=== PATIENT | female | born 1940 | race Caucasian/White ===

== ENCOUNTER 2017-02-09 09:06 | Outpatient (RCR) | payer MEDICARE, OTHER ==
[~2017-02-09 09:06] MED LIST: ECOTRIN325 MG PO; FOSAMAX PLUS D1 TAB PO; LIPITOR20 MG PO; MVI; ZOCOR 20MG20 MG
== END 2017-02-09 09:07 ==
LOC: WSPT 09:06
DX: Z01.89 Encounter for other specified special examinations (principal)

== ENCOUNTER → 2017-02-24 | Outpatient (CLI) | payer MEDICARE, OTHER | LOC: MC.RAD 07:20 | DX: Z12.31 Encounter for screening mammogram for malignant neoplasm of breast (principal) ==

== ENCOUNTER 2017-03-01 08:01 | Outpatient (RCR) | payer MEDICARE, OTHER | END 2017-03-01 08:04 | disposition still patient (30) | LOC: WSPT | DX: M25.552 Pain in left hip (principal); G89.29 Other chronic pain | CPT/HCPCS: G8978-GP; G8979-GP; G8980-GP ==

== ENCOUNTER → 2018-03-07 | Outpatient (CLI) | payer MEDICARE, OTHER | LOC: MC.RAD 09:49 | DX: Z12.31 Encounter for screening mammogram for malignant neoplasm of breast (principal); Z53.9 Procedure and treatment not carried out, unspecified reason ==

== ENCOUNTER → 2018-03-08 | Outpatient (CLI) | payer MEDICARE, OTHER | LOC: MC.RAD 07:53 | DX: Z12.31 Encounter for screening mammogram for malignant neoplasm of breast (principal) ==

== ENCOUNTER → 2018-09-19 | Outpatient (CLI) | payer MEDICARE, OTHER | LOC: COL.RAD 07:51 | DX: M47.22 Other spondylosis with radiculopathy, cervical region (principal); M48.061 Spinal stenosis, lumbar region without neurogenic claudication; M25.78 Osteophyte, vertebrae ==

== ENCOUNTER → 2019-03-11 | Outpatient (CLI) | payer MEDICARE, OTHER | LOC: MC.RAD 10:20 | DX: Z12.31 Encounter for screening mammogram for malignant neoplasm of breast (principal) ==

== ENCOUNTER → 2020-03-12 | Outpatient (CLI) | payer MEDICARE, OTHER | LOC: MC.RAD 08:27 | DX: Z12.31 Encounter for screening mammogram for malignant neoplasm of breast (principal) ==

== ENCOUNTER → 2020-11-04 | Outpatient (CLI) | payer MEDICARE, OTHER ==
[~2020-11-04] MED LIST changes: +ASPIRIN E.C. 8181 MG PO; +CALCIUM 600 PLU1 TAB PO; +PROTONIX20 MG PO; +RESTASIS0.05% OU; +VOLTAREN GEL 1%1 TU TP
== END ==
LOC: COL.RAD 12:18
DX: M18.12 Unilateral primary osteoarthritis of first carpometacarpal joint, left hand (principal)
CPT/HCPCS: J3301; Q9967

== ENCOUNTER 2021-02-16 15:38 | Outpatient (CLI) | payer MEDICARE, OTHER ==
[~2021-02-16] VITALS: Ht 149.9 cm; Wt 44.3 kg
[~2021-02-16 15:38] MED LIST changes: -ASPIRIN E.C. 8181 MG PO; -CALCIUM 600 PLU1 TAB PO; -PROTONIX20 MG PO; -RESTASIS0.05% OU; -VOLTAREN GEL 1%1 TU TP
[2021-02-16] MEDS ORDERED: VOLTAREN GEL 1%1 TU TP (15:50)
[2021-02-16] MEDS ORDERED: ASPIRIN E.C. 8181 MG PO (15:52)
[2021-02-16] MEDS ORDERED: PROTONIX20 MG PO (15:53)
[2021-02-16] MEDS ORDERED: RESTASIS0.05% OU (15:56)
[2021-02-16] MEDS ORDERED: CALCIUM 600 PLU1 TAB PO (15:57)
[2021-02-16 16:01] VITALS: BP 154/78; PULSE 69; TEMP 98.2
--- NOTE | 2021-02-16 17:21 | NUR ---
PT REMAINED FOR 1 HOUR POST INJECTION, DID FINE, NO ADVERSE REACTIONS, AMBULATED FROM UNIT BY SELF.
== END 2021-02-16 17:15 | disposition home or self-care (01) ==
LOC: EUO 15:38
DX: M81.0 Age-related osteoporosis without current pathological fracture (principal)
CPT/HCPCS: J0897

== ENCOUNTER → 2021-03-15 | Outpatient (CLI) | payer MEDICARE, OTHER ==
[~2021-03-15] MED LIST changes: +ASPIRIN E.C. 8181 MG PO; +CALCIUM 600 PLU1 TAB PO; +PROTONIX20 MG PO; +RESTASIS0.05% OU; +VOLTAREN GEL 1%1 TU TP
== END ==
LOC: MC.RAD 07:57
DX: Z12.31 Encounter for screening mammogram for malignant neoplasm of breast (principal)

== ENCOUNTER 2021-09-07 08:52 | Outpatient (CLI) | payer MEDICARE, OTHER ==
[~2021-09-07] VITALS: Ht 149.9 cm; Wt 46.4 kg
[2021-09-07 09:16] VITALS: BP 130/72; PULSE 68; TEMP 99
[2021-09-07] MEDS ORDERED: PROLIA60 MG/ML SQ (09:18)
[2021-09-07] MEDS ORDERED: NIZORAL CR 30GM TOP (09:19)
[2021-09-07] MEDS ORDERED: ZOCOR 40MG40 MG (09:21)
== END 2021-09-07 09:49 | disposition home or self-care (01) ==
LOC: EUO 08:52
DX: M81.0 Age-related osteoporosis without current pathological fracture (principal)
CPT/HCPCS: J0897

== ENCOUNTER → 2021-10-26 | Outpatient (CLI) | payer MEDICARE, OTHER ==
[~2021-10-26] MED LIST changes: +NIZORAL CR 30GM TOP; +PROLIA60 MG/ML SQ; +ZOCOR 40MG40 MG
== END ==
LOC: COL.RAD 10-22 14:15
DX: M18.12 Unilateral primary osteoarthritis of first carpometacarpal joint, left hand (principal)
CPT/HCPCS: J3301; Q9967

== ENCOUNTER → 2022-02-16 | Outpatient (CLI) | payer MEDICARE, OTHER | LOC: COL.RAD 07:30 | DX: M51.9 Unspecified thoracic, thoracolumbar and lumbosacral intervertebral disc disorder (principal); M48.02 Spinal stenosis, cervical region; R20.0 Anesthesia of skin | CPT/HCPCS: A9575 ==

== ENCOUNTER → 2022-03-16 | Outpatient (CLI) | payer MEDICARE, OTHER | LOC: MC.RAD 06:54 | DX: Z12.31 Encounter for screening mammogram for malignant neoplasm of breast (principal) ==

== ENCOUNTER 2022-09-09 12:46 | Outpatient (CLI) | payer MEDICARE, OTHER ==
[~2022-09-09] VITALS: Ht 149.9 cm; Wt 47.0 kg
[~2022-09-09 12:46] MED LIST changes: -NIZORAL CR 30GM TOP; +NIZORAL SHAMPO120 M1 TP; -ZOCOR 40MG40 MG; +ZOCOR 40MG40 MG PO
[2022-09-09] MEDS ORDERED: PEPCID 20MG TAB20 MG PO (13:14)
[2022-09-09 13:15] VITALS: BP 137/62; PULSE 71; TEMP 98.1
== END 2022-09-09 15:34 ==
LOC: EUO 12:46
DX: M81.0 Age-related osteoporosis without current pathological fracture (principal)
CPT/HCPCS: J0897

== ENCOUNTER 2023-03-14 12:54 | Outpatient (CLI) | payer MEDICARE, OTHER ==
[~2023-03-14] VITALS: Ht 144.8 cm; Wt 47.3 kg
[~2023-03-14 12:54] MED LIST changes: +MULTI VITAMINS1 TAB PO; +PEPCID 20MG TAB20 MG PO
[2023-03-14 13:10] VITALS: BP 114/56; PULSE 66; TEMP 98.4
--- NOTE | 2023-03-14 13:23 | NUR ---
pt tolerated prolia injection well. vital signs remained within normal limtis. pt ambulated independently to main [facility] following injection and pt was free from acute concerns and complaints at time of discharge.
== END 2023-03-14 13:24 | disposition home or self-care (01) ==
LOC: EUO 12:54
DX: M81.0 Age-related osteoporosis without current pathological fracture (principal)
CPT/HCPCS: J0897

== ENCOUNTER 2024-03-16 11:38 | Observation (INO) | payer MEDICARE, OTHER ==
[~2024-03-16] VITALS: Ht 144.8 cm; Wt 47.2 kg
[~2024-03-16 11:38] MED LIST changes: +ADVIL200 MG PO
[2024-03-16 12:17] LABS: BASO # 0.1 K/mm3 (0.0-0.2); EOS # 0.2 K/mm3 (0.0-0.7); GRAN # 5.9 K/mm3 (1.4-6.5); GRAN % 65.3 % (42.2-75.2); HEMOGLOBIN 14.6 g/dl (12.5-16.0); LYMPH # 2.4 K/mm3 (1.2-3.4); MEAN CELL VOLUME 92 fl (80.0-100.0); MEAN CORPUSCULAR HEMOGLOBIN 32 pg (27-31); MEAN CORPUSCULAR HGB CONC 35 g/dl (33.0-37.0); MEAN PLATELET VOLUME 9.1 fl (7.4-10.4); MONO # 0.5 K/mm3 (0.1-0.6); MONO % 5.4 % (1.7-9.3); PLATELET COUNT 326 K/mm3 (130-400); RED BLOOD COUNT 4.55 M/mm3 (4.10-5.30); REDCELL DISTRIBUTION WIDTH-CV 11.9 % (11.5-14.5)
[2024-03-16 12:24] LABS: ALBUMIN 4.2 g/dL (3.4-4.8); BILIRUBIN,TOTAL 0.4 mg/dL (0.2-1.2); CALCIUM 9.8 mg/dL (8.4-10.2); CREATININE, serum 0.71 mg/dL (0.57-1.11); POTASSIUM 3.8 mEq/L (3.5-4.5); TOTAL PROTEIN 7.8 g/dl (6.2-8.1)
[2024-03-16] MEDS ORDERED: hydrALAZINE 20 MG/ML 1 ML VIAL IV ONE (14:00)
[2024-03-16] MEDS ORDERED: Iohexol 350 - 100 ML VIAL IV ONE (16:00)
[2024-03-16 17:00] VITALS: BP_SYST 164
[2024-03-16] MEDS ORDERED: Acetaminophen 325 MG TAB PO PRN (18:00)
[2024-03-16] MEDS ORDERED: MUCINEX 60600 MG/TA1 PO (18:02)
[2024-03-16] MEDS ORDERED: Ibuprofen 200 MG TAB PO PRN (19:45)
[2024-03-16 20:00] VITALS: BP 164/70; PULSE 92; TEMP 98.3
--- NOTE | 2024-03-16 20:00 | NUR ---
PATIENT IS A&O. NOTED ELEVATED B/P OF 164/69 WITH ALL OTHER VSS ON TELE. PATIENT WAS GIVEN HYDRALAZINE ONCE TODAY WHEN SYSTOLIC WAS OVER 180. PATIENT APPEARS TO BE ADMITTED FOR SYMPTOMS OF HTN. SHE REPORTS DIZZINESS WITH STANDING & BURCH BUT DENIES COMPLAINTS NOW. PATIENT REQUESTING TYLENOL AT BEDTIME FOR CHRONIC NECK PAIN, GIVEN WITH HS MED[facility]. PATIENT IS AN EASY SBA TO BATHROOM, NO WALKING DEVICE. LEFT FORARM IV TO INT. HEAD TO TOE ASSESSMENT WNL. NO OTHER NEEDS AT THIS TIME. CALL LIGHT IN REACH. BED ALARM ON.
[2024-03-16] MEDS ORDERED: Atorvastatin 40 MG TAB PO SCH (21:00)
[2024-03-16] MEDS ORDERED: guaiFENesin ER 600 MG **** subs to guaiFENesin 200 MG PO SCH (21:39)
[2024-03-16] MEDS ORDERED: guaiFENesin 200 MG TAB PO SCH (21:43)
[2024-03-17] VITALS (7 sets, daily range): BP systolic 110–145; BP diastolic 62–76; PULSE 68–71; TEMP 97.4–98
[2024-03-17] MEDS ORDERED: Heparin 5,000 UNITS/ML 1 ML VIAL SQ SCH
[2024-03-17 05:40] LABS: BASO # 0.1 K/mm3 (0.0-0.2); BASO % 0.6 % (0.0-2.0); EOS # 0.3 K/mm3 (0.0-0.7); EOS % 2.9 % (0.0-4.0); GRAN % 57.3 % (42.2-75.2); HEMOGLOBIN 12.7 g/dl (12.5-16.0); LYMPH # 2.6 K/mm3 (1.2-3.4); LYMPH % 29.8 % (20.0-51.0); MEAN CELL VOLUME 91 fl (80.0-100.0); MEAN CORPUSCULAR HEMOGLOBIN 32 pg (27-31); MEAN CORPUSCULAR HGB CONC 35 g/dl (33.0-37.0); MONO # 0.8 K/mm3 (0.1-0.6); MONO % 9.1 % (1.7-9.3); PLATELET COUNT 281 K/mm3 (130-400); RED BLOOD COUNT 4.03 M/mm3 (4.10-5.30)
[2024-03-17 05:42] LABS: HEMATOCRIT 36.5 % (37.0-47.0)
[2024-03-17 05:55] LABS: CALCIUM 9.1 mg/dL (8.4-10.2); CHOLESTEROL RISK RATIO 3.4; CREATININE, serum 0.7 mg/dL (0.57-1.11); POTASSIUM 3.7 mEq/L (3.5-4.5)
--- NOTE | 2024-03-17 08:19 | NUR ---
SHIFT ASSESSMENT COMPLETE. VSS. ALL MORNING MEDS GIVEN ORDERED. PATIENT AWAKE IN BED WATCHING TV. PATIENT STATES FEELING MUCH BETTER TODAY. HAS PAIN IN HER NECK 09/05 BUT THAT IS A CHRONIC PAIN SHE HAS DAILY, PAIN MEDS GIVEN ORDERED. PATIENT HAS NO OTHER REQUEST AT THIS TIME. CALL LIGHT IN REACH AND FALL PRECAUTIONS IN PLACE DUE TO ADMISSION BEING FOR WEAKNESS
[2024-03-17] MEDS ORDERED: amLODIPine 5 MG TAB PO SCH (09:00)
--- NOTE | 2024-03-17 10:23 | NUR ---
mat worker met with pt and daughter, Suly [phone] to discuss discharge planning. Pt lives alone in [place], but reports her daughter is going to stay with her for the time being. She sees Dr. Duenas for PCP needs and obtains medications from [facility] with no issues. She verified her insurance as Medicare A/B and [employer] insurance. Pt verified DPOA-HC on file listing her daughter, Suly as primary. Pt is independent with [employer]LS and uses no DME. She is eager to go home today. Discharge Plan: home
[2024-03-17] MEDS ORDERED: ASPIRIN 81M81 MG/TA2 PO (10:31)
[2024-03-17] MEDS ORDERED: NORVASC 5MG5 MG/TAB PO (10:31)
== END 2024-03-17 12:45 | disposition home or self-care (01) ==
LOC: COL.ER 11:38 → SURG 16:47
PROVIDERS: Emergency Medicine; ADMIT Internal Medicine
DX: I16.0 Hypertensive urgency (principal); I65.21 Occlusion and stenosis of right carotid artery; I65.22 Occlusion and stenosis of left carotid artery; I10 Essential (primary) hypertension; H53.9 Unspecified visual disturbance; E78.5 Hyperlipidemia, unspecified; G89.29 Other chronic pain; M54.2 Cervicalgia; Z79.899 Other long term (current) drug therapy
CPT/HCPCS: G0378; J0360; J1644; Q9967

== ENCOUNTER → 2024-03-18 | Outpatient (CLI) | payer MEDICARE, OTHER ==
[~2024-03-18] MED LIST changes: +ASPIRIN 81M81 MG/TA2 PO; +MUCINEX 60600 MG/TA1 PO; +NORVASC 5MG5 MG/TAB PO
== END ==
LOC: MC.RAD 09:09
DX: Z12.31 Encounter for screening mammogram for malignant neoplasm of breast (principal)

== ENCOUNTER 2024-03-20 14:02 | Outpatient (CLI) | payer MEDICARE, OTHER ==
[~2024-03-20] VITALS: Ht 144.8 cm; Wt 47.0 kg
[2024-03-20] MEDS ORDERED: Denosumab 60 MG/ML SYRINGE SQ ONE (14:15)
[2024-03-20 14:23] VITALS: BP 134/66; PULSE 84; TEMP 98.2
== END 2024-03-20 14:29 | disposition home or self-care (01) ==
LOC: EUO 14:02
DX: M81.0 Age-related osteoporosis without current pathological fracture (principal)
CPT/HCPCS: J0897